=== PATIENT | male | born 1955 | race Caucasian/White ===

== ENCOUNTER → 2023-07-15 | Outpatient (CLI) | payer OTHER | END | disposition home or self-care (01) | LOC: RESCLI 15:44 | PROVIDERS: ATTEND Internal Medicine | DX: R73.09 Other abnormal glucose (principal); F42.9 Obsessive-compulsive disorder, unspecified; E66.3 Overweight; Z79.899 Other long term (current) drug therapy ==

== ENCOUNTER → 2024-07-16 | Outpatient (CLI) | payer OTHER | END | disposition home or self-care (01) | LOC: RESCLI 02:51 | PROVIDERS: ATTEND Student in an Organized Health Care Education/Training Program | DX: C61 Malignant neoplasm of prostate (principal); F42.9 Obsessive-compulsive disorder, unspecified; N18.1 Chronic kidney disease, stage 1; Z98.890 Other specified postprocedural states; Z88.8 Allergy status to other drugs, medicaments and biological substances; Z79.899 Other long term (current) drug therapy ==